=== PATIENT | female | born 1945 | race Caucasian/White ===

== ENCOUNTER → 2016-09-20 | Outpatient (CLI) | payer OTHER, BC ==
[2016-09-20 09:50] LABS: BASOPHILS # (AUTO) 0.03 10*3/UL; BASOPHILS % (AUTO) 0.4 % (0-1); EOSINOPHILS # (AUTO) 0.13 10*3/UL; EOSINOPHILS % (AUTO) 1.6 % (0-8); HEMATOCRIT 42.2 % (37.0-47.0); LYMPHOCYTES # (AUTO) 2.01 10*3/uL; MEAN CORPUSCULAR HGB CONC 33.2 g/dL (33-37); MEAN CORPUSCULAR VOLUME 96.6 FL (81-99); MONOCYTES # (AUTO) 0.64 10*3/UL (0.3-0.8); MONOCYTES % (AUTO) 7.7 % (5-15); NEUTROPHILS # (AUTO) 5.53 10*3/UL; NEUTROPHILS % (AUTO) 66.1 % (50-80); RED BLOOD COUNT 4.37 10^6/uL (4.20-5.40)
[2016-09-20 09:51] LABS: PLATELET MORPHOLOGY COMMENT NORMAL MORPHOLOGY (NORM); RBC MORPHOLOGY COMMENT NORMAL MORPHOLOGY (NORM); WBC MORPHOLOGY COMMENT NORMAL MORPHOLOGY (NORM)
[2016-09-20 10:09] LABS: HEMOGLOBIN A1C 5.46 % (4.2-6.0)
[2016-09-20 10:41] LABS: BLOOD UREA NITROGEN 22 mg/dL (7-22); CALCIUM 9.5 mg/dL (8.7-10.7); EST GLOMERULAR FILTRATION > 60 (>60 ml/min/1.73m(2)); SERUM ALBUMIN 4.2 g/dL (3.5-4.8)
== END ==
LOC: LAB 09:32
PROVIDERS: ATTEND Orthopaedic Surgery
DX: M25.562 Pain in left knee (principal); E88.81 Metabolic syndrome and other insulin resistance; I10 Essential (primary) hypertension
CPT/HCPCS: 36415; 80053; 83036; 85025; 85610; 85730

== ENCOUNTER 2017-01-11 15:25 | Inpatient (IN) | payer OTHER, BC ==
[2017-01-11] MEDS: Sodium Chloride 0.9% 1,000 ML PRIMARY IV ONE ×2 (15:25→20:17)
[2017-01-11] MEDS ORDERED: MAG HYDROX/AL HYDROX/SIMETH 30 ML SUSP PO ONE (16:05)
[2017-01-11] MEDS ORDERED: NORMAL SALINE 10 ML SYRINGE FLUSH IVP PRN ×4 (16:05→19:43)
[2017-01-11] MEDS ORDERED: Pantoprazole Inj 40 MG in Normal Saline Flush 10 ML IVP ONE (16:05)
[2017-01-11] MEDS ORDERED: ASPIRIN 81 MG (BABY) CHEWABLE TABLET PO ONE (16:05)
[2017-01-11 16:17] LABS: EOSINOPHILS % (AUTO) 0.5 % (0-8); HEMATOCRIT 41.4 % (37.0-47.0); HEMOGLOBIN 13.9 g/dL (12.0-16.0); MEAN CORPUSCULAR HGB CONC 33.6 g/dL (33-37); MEAN CORPUSCULAR VOLUME 95.2 FL (81-99); MEAN PLATELET VOLUME 11.4 FL (7.4-12.2); MONOCYTES % (AUTO) 7.9 % (5-15); NEUTROPHILS % (AUTO) 67.2 % (50-80); RED BLOOD COUNT 4.35 10^6/uL (4.20-5.40)
[2017-01-11 16:18] LABS: BASOPHILS # (AUTO) 0.06 10*3/UL; BASOPHILS % (AUTO) 0.6 % (0-1); EOSINOPHILS # (AUTO) 0.05 10*3/UL; NEUTROPHILS # (AUTO) 6.82 10*3/UL; PLATELET MORPHOLOGY COMMENT NORMAL MORPHOLOGY (NORM); RBC MORPHOLOGY COMMENT NORMAL MORPHOLOGY (NORM); WBC MORPHOLOGY COMMENT NORMAL MORPHOLOGY (NORM)
[2017-01-11 16:20] LABS: CALCIUM 9.7 mg/dL (8.7-10.7); SERUM ALBUMIN 4.3 g/dL (3.5-4.8)
[2017-01-11] MEDS: MORPHINE SULFATE 2 MG/1 ML IVP ONE ×2 (16:24→16:32)
--- NOTE | 2017-01-11 16:30 | DI ---
XR CXR 1VW,01/11/2017 4:06 PM: Clinical History: Chest pain Previous Exam: August 31, 2013 Findings: A single frontal radiograph of the chest is obtained, and demonstrates cardiomegaly. Overlying EKG le ads are seen. There is no infiltrate nor effusion. Skeletal structures are unremarkable. Impression: Cardiomegaly otherwise unremarkable.
[2017-01-11 16:32] LABS: CREATINE KINASE MB < 0.22 NG/ML (0.00-5.00); TROPONIN I < 0.012 ng/mL (< 0.040)
[2017-01-11] MEDS ORDERED: MORPHINE SULFATE 4 MG/1 ML IVP ONE (17:25)
--- NOTE | 2017-01-11 17:35 | EKG ---
[address] [address] Measurements Intervals [place] Rate: 89 P: UT: 0 QRS: -7 QRSD: 120 T: -53 QT: 429 QTc: 475 Interpretive Statements ATRIAL FIBRILLATION MODERATE INTRAVENTRICULAR CONDUCTION DELAY [110+ ms QRS DURATION] NONSPECIFIC T-WAVE ABNORMALITY PROLONGED QT INTERVAL INTERPRETATION BASED ON A DEFAULT AGE OF 40 YEARS Compared to ECG 01/11/2017 15:54:55 T-wave abnormality now present Electronically Signed On 01-12-17 09:01:46 MDT by Kush Cavanaugh MD [email or web address]
--- NOTE | 2017-01-11 18:37 | EKG ---
[address] [address] Measurements Intervals [place] Rate: 82 P: [place]: 0 QRS: -7 QRSD: 120 T: 11 QT: 429 QTc: 467 Interpretive Statements ATRIAL FIBRILLATION MODERATE INTRAVENTRICULAR CONDUCTION DELAY [110+ ms QRS DURATION] PROLONGED QT INTERVAL Compared to ECG 01/17/2015 07:46:48 Intraventricular conduction delay now present Prolonged QT interval now present Sinus bradycardia no longer present First degree AV block no longer present Electronically Signed On 01-12-17 09:01:15 MDT by Kush Cavanaugh MD [email or web address]
[2017-01-11] MEDS ORDERED: Sodium Chloride 0.9% 1,000 ML PRIMARY IV ONE (18:46)
[2017-01-11] MEDS ORDERED: LIDOCAINE W/ SODIUM BICARB 0.5 ML SYR SUBD PRN (19:43)
[2017-01-11] MEDS ORDERED: MORPHINE SULFATE 2 MG/1 ML IV PRN (19:43)
[2017-01-11] MEDS ORDERED: Sodium Chloride 0.9% 1,000 ML PRIMARY IV SCH (19:43)
[2017-01-11] MEDS ORDERED: NITROGLYCERIN 0.4 MG SL TAB (BOTTLE OF 3) SL PRN (19:43)
[2017-01-11] MEDS ORDERED: KETOROLAC 15 MG/1 ML VIAL IVP ONE (20:04)
--- NOTE | 2017-01-11 20:27 | PDOC ---
History and Physical - History of Present Illness Date and Time of Service: 11 January 2017, 2000 hrs. Chief Complaint: Patient has a chief complaint of chest pain that she describes as pressure with radiation to her left jaw on ear, associated shortness of breath, pain with deep respirations. History of Present Illness: At approximately 1500 hrs. today patient developed chest pain that she describes as pressure with radiation to her left jaw and ear. She has associated shortness of breath, pain with deep respiration, nausea but no vomiting. She denies any headache, sore throat, changes in her vision, no vomiting or diarrhea, no abdominal pain, she has had decreased urine output since 1500. Morphine sulfate has not helped her pain, nor his nitroglycerin. She states the pain seems to be getting worse and is feeling like a tearing sensation in her chest. Past Medical History Medical History: Past medical history includes Immanuel krause, she describes diabetes because it prediabetes. Atrial fibrillation with 2 ablations, the most recent 01 January 2017 and a subsequent cardioversion. She will return to the arrhythmia of Immanuel krause on December 30 of this year. Surgical History: Bilateral knee replacement, 2 umbilical hernia repairs, Achilles tendon rupture repair, cholecystectomy, cardiac ablation 2. Pertinent Family History: Paternal myocardial infarction Past Social History: Patient is for 51 years, denies alcohol and tobacco. 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 Medication / Allergies Home Medications: Home Medications Medication Instructions Recorded Confirmed Type Biotin 2,500 mcg PO BID 09/11/12 01/11/17 History Calcium 600 + D3 Softgel 1 each PO DAILY 09/11/12 01/11/17 History Century Tablet 1 each PO DAILY 09/11/12 01/11/17 History [place]-3 Fatty Acids/Fish Oil [Fish 1 each PO DAILY 09/11/12 01/11/17 History Oil Softgel] Calcium Carbonate [Calcium] 600 mg PO DAILY tab 01/28/14 01/11/17 History Rivaroxaban [Xarelto] 20 mg PO DAILY tab 01/28/14 01/11/17 History Ubidecarenone [Co Q-10] 400 mg PO DAILY cap 01/28/14 01/11/17 History Lancets [Onetouch Lancets] 1 each MC BID #100 each 03/27/15 01/11/17 Clinic Tramadol HCl 1 tab PO PRN tab 09/29/15 01/11/17 History Turmeric Root Extract [Turmeric] 500 mg PO BID cap 09/29/15 01/11/17 History Blood Sugar Diagnostic [Onetouch 1 each IN PRN #90 strip 05/06/16 01/11/17 Clinic Ultra Test Strips] Hydrocortisone [Hydrocortisone 30 gm TOPICAL PRN #1 tube 05/06/16 01/11/17 Clinic 2.5%] Lisinopril/Hydrochlorothiazide 1 tab PO DAILY #90 tab 05/06/16 01/11/17 Clinic [Lisinopril-Hctz 20-12.5 Mg Tab] Metformin HCl 1 tab PO BID #180 tab 05/06/16 01/11/17 Clinic Albuterol Sulfate [Proair Hfa] 1 - 2 puff INH Q4-6H #1 puff 07/26/16 01/11/17 Clinic Simvastatin 80 mg PO DAILY #90 tab 01/04/17 01/11/17 Clinic Amiodarone HCl 400 mg PO BID 01/11/17 01/11/17 History Metoprolol Tartrate 50 mg PO BID 01/11/17 01/11/17 History Allergies/Adverse Reactions: Allergies Allergy/AdvReac Type Severity Reaction Status Date / Time adhesive tape [Adhesive Tape] Allergy Mild RASH Verified 01/11/17 15:48 SESAME SEED OIL Allergy Severe ANAPHLAXIS Uncoded 01/11/17 15:48 sesame seeds Allergy Severe Anaphylaxis Uncoded 01/11/17 15:48 Review of Systems - Review of Systems All Systems: Reviewed & No Additional Complaints Except as Stated (12 point review of systems and it is otherwise negative.) Exam - Vitals Vital Signs: Vital Signs Pulse Rate [Telemetry] 78 Blood Pressure [Right Arm] 88/54 Height 5 ft 5 in Weight 250 lb - General General Appearance: POSITIVE: Cooperative, Mild Distress, Obese - Head Head Exam: POSITIVE: Normal Inspection, Normocephalic, Atraumatic - Eye Eye Exam: POSITIVE: Normal Appearance, PERRL, EOMI, No Scleral Icterus - ENT ENT Exam: POSITIVE: Normal Exam, Normal External Ear Exam, Normal Oropharynx, Mucous Membranes Moist - Neck Neck Exam: POSITIVE: Normal Inspection, Full ROM, No Tenderness, No Lymphadenopathy, No Thyromegaly, JVP is not Raised - Respiratory Respiratory Exam: POSITIVE: Clear to Auscultation - Bilaterally, Breathing Non Labored, Decreased Breath Sounds Additional Respiratory Exam Details: Patient has shallow respiratory excursion secondary to pain. - Cardiovascular Cardiovascular Exam: POSITIVE: No Murmur, No Clicks, No Gallops, No Rubs, PMI Non-Displaced, Irregular Rhythm (Irregularly irregular rhythm) - GI/Abdominal GI/Abdominal Exam: POSITIVE: Normal Bowel Sounds, Non Tender, Non Distended, Soft, No Masses, No Hepatomegaly, No Splenomegaly, No Organomegaly - External Exam: POSITIVE: Deferred Exam: POSITIVE: Deferred - Extremities Extremities Exam: POSITIVE: Normal Inspection, Full ROM, Normal Capillary Refill , No Clubbing Present, No Edema Present, No Cyanosis Present, Negative Azael's sign, Dosalis Pedis Pulses - Stong & Regular - Back Back Exam: POSITIVE: Normal Inspection - Neurological Neurological Exam: POSITIVE: Alert, Oriented x 3, Reflexes Normal, CN II-XII Intact, No Facial Droop, Speech Intact / Clear, Moves All Extremities Equally - Psychiatric Psychiatric Exam: POSITIVE: Normal Affect, Normal Mood - Integumentary Integumentary Exam: POSITIVE: Normal Color, Warm, Dry, Intact - Central Line Examination Central Line Present on Admission: No Results - Labs CBC and BMP: 01/11/17 15:20 01/11/17 15:20 - EKG Data -: EKG Interpreted by Me (Atrial fibrillation with controlled RVR.) - EKG Data EKG Interpretation: No Acute Change - Imaging Status: Image Reviewed by Me (Ct showed pneumopericardium and pericardial effusion. No PE.) AFib Stroke Risk Screening - AFib Stroke Risk (CHADS-VASc) Atrial Fibrillation Ischemic Stroke Risk Factors: Age 65 to 74 years, Diabetes Mellitus, Female (Patient currently in atrial fibrillation) CHADS-VASc Score (A-Fib Stroke Risk Score): 3 CHADS-VASc Risk: High Risk (Patient currently in atrial fibrillation) Assessment and Plan - Patient Problems (1) Chest pain, rule out acute myocardial infarction Status: Acute (2) Pneumopericardium Status: Acute (3) Atrial fibrillation Status: Acute - Assessment / Plan Additional Assessment/Plan Details: admit patient. got CT of chest and found pneumopericarium--called air shovel operator in [place] and directed to cardiology in [place] with [facility]. Spoke with Dr. Le there and he accepted patient in transfer. patient flown out. (see discharge summary for further details)
[2017-01-11 20:28] LABS: TROPONIN I < 0.012 ng/mL (< 0.040)
[2017-01-11 20:50] LABS: HEMOGLOBIN A1C 5.29 % (4.2-6.0)
[2017-01-11] MEDS ORDERED: Rivaroxaban Tab 10 MG TAB PO ONE (20:59)
[2017-01-11] MEDS ORDERED: Metoprolol TARTRATE Tab 25 MG TAB PO SCH (21:00)
[2017-01-11 22:16] VITALS: RESP 18; TEMP 96.9
--- NOTE | 2017-01-11 22:27 | DI ---
COMPUTED TOMOGRAPHY ANGIOGRAPHY, CHEST. CLINICAL STATEMENT: Chest pain radiating to the back. TECHNIQUE: IV contrast administration of volume of iodine-based contrast medium (isovue 100ml). CTA chest to opa cify pulmonary arteries. MPR. Additional MIP images obtained. COMMENTS: Tubes/Lines: None. Thyroid gland heterogeneous, ultrasound can further characterize. Lungs: Lungs are without focal consolidation, pleural effusion or pneumothorax. Moderate bibasilar a telectasis is noted, limiting evaluation of the lung bases. Pulmonary emboli: No evidence of acute or chronic pulmonary emboli. Heart: Mild cardiomegaly and moderate sized increased density pericardial effusion with additional p neumopericardium. Vessels: Atherosclerotic vascular disease of the coronary arteries and thoracic aorta. Mediastinum: Several, small mediastinal lymph nodes which are not enlarged by size criteria. Abdomen: Limited evaluation of the upper abdominal viscera without acute abnormality identified. Gallbladder surgically absent. Sternum, ribs and thoracic spine: No acute osseous finding identified. Multilevel thoracic spine degenerative changes. IMPRESSION: 1. Pneumopericardium and increased density fluid in the pericardial sac which may represent blood pro ducts. Correlation for history of trauma or recent surgery. Additional possibilities include fistul a between an adjacent air-containing organ (stomach or esophagus), cardiac injury, positive pressure ventilation, pericardial fluid drainage or infectious pericarditis. Urgent thoracic surgery consulta tion is recommended and correlation on exam for evidence of pericardial tamponade (a clinical diagnos is). 2. No CT evidence of acute or chronic pulmonary embolism.
--- NOTE | 2017-01-11 23:07 | DI ---
Examination: Bilateral lower extremity venous ultrasound examination. History: SOB s/p 8 hour car ride. Findings: Pulse wave Doppler and real-time analysis of bilateral lower extremity deep venous system from the co mmon femoral vein to the proximal posterior tibial/peroneal veins demonstrate no evidence of intralum inal thrombus. The deep veins are completely compressible at all these levels. There is normal respiratory variation and augmentation of the venous wave forms. Conclusion: Normal bilateral lower extremity deep venous ultrasound study, no evidence of venous thro mbus.
--- NOTE | 2017-01-12 00:02 | DCSUMMARY ---
Hospitalization Summary Admit Date: 01/11/17 Discharge Date: 01/11/17 Primary Diagnosis:: Chest pain with Pneumopericardium and pericardial effusi Hospital Course: Patient was admitted tonight with chest pain she described as pressure with radiation to the right jaw and ear with associated shortness of breath and increasing pain with deep respirations. Serial cardiac enzymes were negative. EKG showed atrial fibrillation with controlled rate. After admission CT scan was ordered which showed a pneumopericardium and up pericardial effusion. There was no evidence of acute or chronic pulmonary embolism. Ultrasound of the bilateral lower extremity shows no clot present. CBC is within normal limits. Comprehensive metabolic panel is unremarkable. D-dimer is normal. During the patient's time in the emergency room she received 2 aliquots of morphine sulfate IV. This resulted in a precipitous drop in her blood pressure into the 60s systolic after the second dose. She received a liter of normal saline and her pressures improved here on the floor. Her pain continued to escalate and she was given 15 mg of IV Toradol which resulted in significant improvement of her pain. An attempt was made to obtained an echocardiogram, however, she was having copious vomiting at that time and I was unable to complete the study. Subsequently she received Zofran and her nausea and vomiting improved. I have discussed benefits and risks of [facility] with the patient and her . They wish to proceed with transfer to [place] to [facility]. I was able to contact her Dallas Le in [place] with [facility] who has graciously accepted this patient in transfer. [facility] has been contacted and will be transporting this patient to [place]. Exam - Vitals Vital Signs: Vital Signs Temperature 96.9 F Temperature Source Temporal Artery Scan Pulse Rate [Pulse Oximeter] 109 Pulse Rate [Telemetry] 78 Pulse Rate 84 Respiratory Rate 18 Blood Pressure [Right Arm] 93/74 Blood Pressure 88/54 Pulse Ox 97 Oxygen Flow Rate 2 Oxygen Delivery Method CPAP Height 5 ft 5 in Weight 250 lb Patient Problems - Patient Problem List (1) Atrial fibrillation Current Visit: Yes Status: Acute (2) Chest pain, rule out acute myocardial infarction Current Visit: Yes Status: Acute
[2017-01-12] MEDS ORDERED: ONDANSETRON 4 MG/2 ML VIAL IVP ONE (00:34)
[2017-01-12] MEDS ORDERED: ONDANSETRON 4 MG/2 ML VIAL IVP PRN (00:39)
[2017-01-12] MEDS ORDERED: Sodium Chloride 0.9% 1,000 ML ONE (02:11)
--- NOTE | 2017-01-12 02:18 | PDOC ---
Chest Pain HPI - General Chief Complaint: Chest Pain Stated Complaint: CHEST PAIN Date Seen by Provider: 01/11/17 Time Seen by Provider: 15:33 Source: Patient Exam Limitations: POSITIVE: No limitations Treatment Prior to Arrival: REPORTS: None Nurse's Notes Reviewed & Considered: Yes - History of Present Illness Initial Comments: The patient is a 71-year-old female. 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 Patient has a history of atrial fibrillation and is on Zarrella toe. Patient has a history of being "prediabetic "and is on metformin. She takes metoprolol and amiodarone. She describes the character of her pain as "sharp" and rates it in intensity as 10 on a scale of 10. Patient has no known coronary artery disease. She has had 2 cardiac ablations and has had her atrial fibrillation cardioverted 2. No associated dyspnea. No nausea, vomiting, diarrhea, melena , hematochezia, hematemesis, dysuria or hematuria. No fevers or chills. No cough. She states her pain is sometimes exacerbated by movement of her torso and by lying down. Patient states she had a similar episode following her most recent cardiac ablation for her atrial fibrillation, and this was apparently diagnosed as GERD. Body Location Affected: REPORTS: Chest Timing: REPORTS: Abrupt Duration: 1 hour Severity: Severe Persistent/Worse since (date): 01/11/17 Persistent/Worse since (time): 14:30 Context: REPORTS: Other (Quilting) Quality: REPORTS: "Pain", Sharpness Radiation: REPORTS: Neck (L), See Diagram, Other (Teeth) Associated Symptoms: DENIES: Nausea, Vomiting, Diaphoresis, Shortness of Breath , Hurts to Breathe, Palpitations, Productive Cough (blood), Productive Cough ( sputum), Weakness, Dizziness Modifying Factors: improves with: None Reported Similar Symptoms Previously: No Recently seen/treated/hospitalized: No Any Prior Injuries Related to Current Complaint?: No - Patient Home Medications Home Medications: Home Medications Biotin 2,500 mcg PO BID 09/11/12 Calcium 600 + D3 Softgel 1 each PO DAILY 09/11/12 Century Tablet 1 each PO DAILY 09/11/12 [place]-3 Fatty Acids/Fish Oil [Fish Oil Softgel] 1 each PO DAILY 09/11/12 Calcium Carbonate [Calcium] 600 mg PO DAILY tab 01/28/14 Rivaroxaban [Xarelto] 20 mg PO DAILY tab 01/28/14 Ubidecarenone [Co Q-10] 400 mg PO DAILY cap 01/28/14 Lancets [ReserveOuttouch Lancets] 1 each MC BID #100 each 03/27/15 Tramadol HCl 1 tab PO PRN tab 09/29/15 Turmeric Root Extract [Turmeric] 500 mg PO BID cap 09/29/15 Blood Sugar Diagnostic [ReserveOuttouch Ultra Test Strips] 1 each IN PRN #90 strip Hydrocortisone [Hydrocortisone 2.5%] 30 gm TOPICAL PRN #1 tube 05/06/16 Lisinopril/Hydrochlorothiazide [Lisinopril-Hctz 20-12.5 Mg Tab] 1 tab PO DAILY # 90 tab 05/06/16 Metformin HCl 1 tab PO BID #180 tab 05/06/16 Albuterol Sulfate [Proair Hfa] 1 - 2 puff INH Q4-6H #1 puff 07/26/16 Simvastatin 80 mg PO DAILY #90 tab 01/04/17 Amiodarone HCl 400 mg PO BID 01/11/17 Metoprolol Tartrate 50 mg PO BID 01/11/17 - Patient Allergies Allergies/Adverse Reactions: Allergies Allergy/AdvReac Type Severity Reaction Status Date / Time adhesive tape [Adhesive Tape] Allergy Mild RASH Verified 01/11/17 15:48 SESAME SEED OIL Allergy Severe ANAPHLAXIS Uncoded 01/11/17 15:48 sesame seeds Allergy Severe Anaphylaxis Uncoded 01/11/17 15:48 Past Medical History - heen HEENT History: Other (please comment) Additional HEENT History: wears RX glasses Cardiovascular History: Hypertension, Arrhythmia, Valvular Heart Disease, Hyperlipidemia, Other (please comment) Additional Cardiovasular History: ATRIAL FIBRILLATION Respiratory History: Asthma, Sleep Apnea, Home CPAP Use, Snoring Gastrointestinal History: GERD Genitourinary History: Denies History Endocrine History: Type 2 Diabetes (oral) Musculoskeletal History: Arthritis, Osteoporosis Prosthesis or Implant: Yes (RIGHT AND LEFT TKA) Neurological History: Migraines Blood Disorders: Denies History Psychiatric History: Denies History History of Sexually Transmitted Diseases: No Female Reproductive History: Denies History Cancer History: Denies History In Past Year Been Physically Harmed or Verbally Threatened: No (PER PATIENT) History of MDRO: No History of Other Communicable Diseases: No Tobacco Use: Never Smoker Alcohol Use: None Substance Use Type: None Previous Surgical History: Yes Type / Date of Surgery: LYMPH NODE BX/ UMBILICAL HERNIA X 2/ ACHILLES TENDON REPAIR/ RIGHT KNEE SCOPE/ RIGHT AND LEFT TKA/ AMBROCIO/ T&A, CARDIAC ABLATION x2, CARDIOVERSION x2 Anesthesia Reactions: No Malignant Hyperthermia: No Family History of Malignant Hyperthermia: No Significant Family History: Heart disease Past Medical History Reviewed: Reviewed - No Changes ROS - Limitations ROS Limitations: No Limitations Constitution: REPORTS: Denies Symptoms Cardiovascular: REPORTS: Chest Pain Respiratory: REPORTS: Denies Resp Symptoms Neurological: REPORTS: Denies Neuro Symptoms Gastrointestinal: REPORTS: Denies GI Symptoms Endocrine: REPORTS: Denies Symptoms Musculoskeletal: REPORTS: Denies MS Symptoms Genitourinary: REPORTS: Denies Symptoms Eyes: REPORTS: Denies Symptoms ENT: REPORTS: Denies Symptoms Skin: REPORTS: Denies Skin Symptoms Lympathic: REPORTS: Denies Lympathic Symptoms Immunologic: POSITIVE: Denies Symptoms Psychiatric: POSITIVE: Denies Psych Symptoms Chest Pain PE - General Appearance General Appearance: REPORTS: Alert, Cooperative, No Evidence of Trauma, Moderate Distress. DENIES: No Acute Distress - HEENT HEENT: POSITIVE: Head Inspection Nml, Eyes Inspection Nml, Ears Inspection Nml, Nose Inspection Nml, Oral/Dental Inspect. Nml, Pharynx Inspect. Nml, PERRL, EOMI - Neck Neck: REPORTS: Normal Inspection, No Carotid Bruit - Respiratory Respiratory: REPORTS: No Respiratory Distress, Breath Sounds Normal, Chest Non- Tender - Cardiovascular Cardiovascular: REPORTS: Heart Sounds Normal, Equal Pulses, Strong Pulses, No Murmur, No Gallop, No Friction Rub, No JVD, Irregularly Irreg Rhythm (Atrial fibrillation with a ventricular response of around 80). DENIES: Regular Rate and Rhythm Peripheral Pulses: Radial (R): 2+, Radial (L): 2+ - Abdomen Abdomen: Soft: (All Quadrants), Normal Bowel Sounds: (All Quadrants), Denies Tenderness: (All Quadrants), No Splenomegaly: (All Quadrants), No Hepatomegaly: (All Quadrants), No Guarding: (All Quadrants), No Rebound: (All Quadrants), No Palpable Pulse: (All Quadrants), No Palpabale Mass: (All Quadrants), No Distention: (All Quadrants), No Rigidity: (All Quadrants) - Skin Skin: REPORTS: Intact, Normal For Race, Warm, Dry, No Rash - Extremities Extremity: Non-Tender: (All Extremities), Normal ROM: (All Extremities), Normal Inspection: (All Extremities) - Neurological / Psychological Neurological: POSITIVE: Oriented X3, director public policy Normal As Tested, Motor Normal, Sensation Normal, 5, 6 Images - Complete Complete: 1 - Area of described discomfort 2 - Radiation Chest Pain Progress - Results Reviewed by me Xrays/CTs/US Reviewed by me: Yes Discussed with Radiologist: Yes Radiology Findings: Chest x-ray normal Lab Results Reviewed: Yes Lab Results:: Laboratory Results 01/11/17 01/11/17 Range/Units 15:20 16:06 WBC 10.15 (4.8-10.8) 10^3/uL RBC 4.35 (4.20-5.40) 10^6/uL Hgb 13.9 (12.0-16.0) g/dL Hct 41.4 (37.0-47.0) % MCV 95.2 (81-99) FL MCH 32.0 H (27-31) PG MCHC 33.6 (33-37) g/dL RDW Std Deviation 41.8 (39-50) fL RDW Coeff of [place] 12.4 (11.5-14.5) % Plt Count 369 H (140-350) 10*3/uL MPV 11.4 (7.4-12.2) FL Immature Gran % (Auto) 0.2 (0-5) % Neut % (Auto) 67.2 (50-80) % Lymph % (Auto) 23.6 (10-50) % [place] % (Auto) 7.9 (5-15) % Eos % (Auto) 0.5 (0-8) % Baso % (Auto) 0.6 (0-1) % Immature Gran # (Auto) 0.02 10*3/UL Neut # (Auto) 6.82 10*3/UL Lymph # (Auto) 2.40 10*3/uL [place] # (Auto) 0.80 (0.3-0.8) 10*3/UL Eos # (Auto) 0.05 10*3/UL Baso # (Auto) 0.06 10*3/UL WBC Morphology Comment Normal morphology (NORM) Plt Morphology Comment Normal morphology (NORM) RBC Morph Comment Normal morphology (NORM) D-Dimer 0.23 (0.00-0.59) mg/L Sodium 134 L (135-145) meq/L Potassium 3.9 (3.8-5.2) meq/L Chloride 98 (98-112) meq/L Carbon Dioxide 25 (23-33) meq/L Anion Gap 11 (5-20) BUN 21 (7-22) mg/dL Creatinine 1.0 (0.50-1.20) mg/dL Estimated GFR 55 (>60 ml/min/1.73m(2)) BUN/Creatinine Ratio 21.00 H (6-20) Glucose 122 H (78-110) mg/dL Mean Blood Glucose 90.157 mg/dL Hemoglobin A1c 5.29 (4.2-6.0) % Calculated Osmolality 281.0 (267-292) mOsm/kg Calcium 9.7 (8.7-10.7) mg/dL Total Bilirubin 0.9 (0.3-1.2) mg/dL AST 22 (8-39) IU/L ALT 31 (9-52) IU/L Alkaline Phosphatase 80 (38-126) IU/L CK-MB (CK-2) < 0.22 (0.00-5.00) NG/ML Troponin I < 0.012 (< 0.040) ng/mL Total Protein 7.6 (6.1-8.0) g/dL Albumin 4.3 (3.5-4.8) g/dL Globulin 3.3 (2.50-4.10) g/dL Albumin/Globulin Ratio 1.30 (1.3-2.0) mg/g EKG Interpreted/Reviewed By Me:: Yes (atrial fibrillation with controlled ventricular response; mild interventric) EKG Interpretation:: POSITIVE: Normal Rate, Normal ST/T, Abnormal EKG. NEGATIVE : Normal Sinus Rhythm, Normal Intervals (Mild interventricular conduction delay) , Normal [place], Normal QRS (Mild interventricular conduction delay) - Patient's Progress Pain Medication Addressed: POSITIVE: Yes (Patient given nitroglycerin without effect; patient then given morphine sulfate) School/Work Release Addressed: POSITIVE: Not Applicable Re-Examine Time: 17:20 Re-Examine Comment: Electrocardiogram, laboratory tests and chest x-ray results discussed with patient. Patient advised that I see no evidence of heart attacks or pulmonary emboli. Patient advised that I'm not sure what the cause of her chest pain is and that I believe she should be admitted for further evaluation, observation and treatment. Status: POSITIVE: Unchanged, Re-Examined Quality Measure Initiative: CP/AMI: POSITIVE: EKG, ASA - Consult Consult (If Yes, Name of Consulting MD & Time Called): Yes (Dr. Diop, hospitalist,[id number]) Consulting MD will see pt:: [place]ITIVE[place] [facility] [place] Counseled: POSITIVE: Patient, RE: Lab Results, RE: Radiology Results, RE: DX, RE : Need for F/U Patient Care Time - Estimated PCT Patient Care Time (In Minutes): 60 Vital Signs - Recent Vital Signs Vital Signs: Vital Signs (Last 8 hours) Temp Pulse Pulse Resp BP BP Pulse Ox 01/11/17 18:55 96.8 F 84 20 88/54 97 01/11/17 18:51 88/54 01/11/17 18:40 78 66/44 01/11/17 18:17 87 01/11/17 18:15 82 77/50 - VS Reviewed Vital Signs Reviewed: Yes Discharge Clinical Impression: Chest pain Discharge Disposition: Admit to Inpatient Condition: Fair Date Decision to Admit to Inpatient: 01/11/17 Time Decision to Admit to Inpatient: 17:20
[2017-01-12] MEDS ORDERED: OMEPRAZOLE 20 MG CAPSULE PO SCH (07:00)
[2017-01-12] MEDS ORDERED: Rivaroxaban Tab 10 MG TAB PO SCH (17:00)
== END 2017-01-12 00:57 | disposition short-term general hospital (02) | DRG 316 ==
LOC: ER 15:25 → MED/SURG 18:02
PROVIDERS: ADMIT Family Medicine; ATTEND Family Medicine
DX: I31.9 Disease of pericardium, unspecified (principal); I31.3 Pericardial effusion (noninflammatory); I10 Essential (primary) hypertension; R07.9 Chest pain, unspecified; I48.91 Unspecified atrial fibrillation
CPT/HCPCS: 71010; 80053; 82553; 83036; 84484; 85025; 85379; 93005; 93010; 96374; 96375; 96376; 99285 ×2; J2270 ×2; J3490; 36415; 71275; 82550; 93970; J1885; J2405; J7030